=== PATIENT | male | born 1960 | race Caucasian/White ===

== ENCOUNTER 2021-02-27 19:54 | Emergency (ER) | payer BC, SELFPAY ==
[2021-02-27 20:01] VITALS: BP 175/105; PULSE 86; RESP 18; TEMP 38.8; O2SAT 100
[2021-02-27 20:40] VITALS: TEMP 36.9
--- NOTE | 2021-02-27 20:40 | ED.GENADULT ---
HPI - General Adult General Chief complaint: Unspecified Stated complaint: hit in head and throat with baseball Time Seen by Provider: 02/27/21 20:08 Limitations: language barrier History of Present Illness HPI narrative: 60 yo male presents to the ED by EMS for a head injury. 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 The first hit him in the face guard. the second struck the neck protector. He was okay initially, but later became weak and dizzy. It was very hot outside today, but he does not believe that was a factor. triage temperature was 38.8. Related Data Home Medications Medication Instructions Recorded Confirmed aspirin 325 mg PO DAILY 02/27/21 02/27/21 atorvastatin 20 mg PO DAILY 02/27/21 02/27/21 Allergies Allergy/AdvReac Type Severity Reaction Status Date / Time Penicillins Allergy Unknown Verified 02/27/21 20:05 Review of Systems Review of Systems: All systems reviewed & are unremarkable except as noted in HPI and below Constitutional: Constitutional: Reports headache(s) and Reports weakness Eyes: Eyes: Reports no additional eye complaints ENT: Reports dizziness Cardiovascular: Cardiovascular: Denies chest pain Respiratory: Respiratory: Denies dyspnea Gastrointestinal: Gastrointestinal: Reports nausea Genitourinary: Genitourinary: Reports no additional male genitourinary complaints Musculoskeletal: Musculoskeletal: Reports no additional musculoskeletal complaints Neurologic: Reports dizziness, Denies syncope and Denies seizure-like activity [facility] Social History Social History Gender identity (if verbalized by the patient): Male Exam Const: General: cooperative Orientation/consciousness: patient oriented x3 Other: diaphoresis HENMT: Head: normal to inspection Neck: Neck: normal visual inspection Resp: Effort & Inspection: normal respiratory effort Auscultation: clear to auscultation bilaterally, no rales, no rhonchi and no wheezes Cardio: Jugular venous distension: no JVD Rate: regular rate Rhythm: regular rhythm Heart sounds: no murmurs GI: Inspection: non-distended GI Palp: Yes Soft to palpation and No Tenderness to palpation present (GI) Skin: General skin exam: normal color Neuro: General: patient oriented x3, gait normal and moves all extremities Cranial nerves: Yes Equal, round and reactive pupils present and Yes Bilaterally intact EOM present Cognition (Neuro): normal cognition Speech: normal speech Extrem: General: no edema Psych: Appearance: well kempt Affect: normal affect Course Vital Signs Vital signs: Vital Signs Temperature 38.8 C H 02/27/21 20:01 Pulse Rate 86 02/27/21 20:01 Respiratory Rate 18 02/27/21 20:01 Blood Pressure 175/105 H 02/27/21 20:01 Pulse Oximetry 100 02/27/21 20:01 Temperature 36.9 C 02/27/21 20:40 Pulse Rate 72 02/27/21 21:58 Respiratory Rate 18 02/27/21 20:01 Blood Pressure 175/101 H 02/27/21 21:58 Pulse Oximetry 98 02/27/21 21:58 Medical Decision Making MDM Narrative Medical decision making narrative: Symptoms likely a combination of head injury and heat exhaustion. Feeling better after fluids. reluctant to have any further evaluation or treatment Differential Diagnosis Differential Diagnosis: concussion, SDH, SAH, Heat stroke, heat exhaustion Medical Records Medical records reviewed: Yes I reviewed the external patient's medical records. Vital Signs Vital Signs: Vital Signs Temperature 38.8 C H 02/27/21 20:01 Pulse Rate 86 02/27/21 20:01 Respiratory Rate 18 02/27/21 20:01 Blood Pressure 175/105 H 02/27/21 20:01 Pulse Oximetry 100 02/27/21 20:01 Temperature 36.9 C 02/27/21 20:40 Pulse Rate 72 02/27/21 21:58 Respiratory Rate 18 02/27/21 20:01 Blood Pressure 175/101 H 02/27/21 21:58 Pulse Oximetry 98 02/27/21 21:58 Discharge Plan Discharge Clinical Doris
[2021-02-27] MEDS: SODIUM CHLORIDE 0.9% IV 1,000 ML 999 ML IV CONT (21:48)
[2021-02-27] MEDS: MECLIZINE HCL 25 MG TABLET PO (21:48)
[2021-02-27 21:58] VITALS: BP 175/101; PULSE 72; O2SAT 98
== END 2021-02-27 22:15 | disposition home or self-care (01) ==
PROVIDERS: Emergency Provider Emergency Medicine; PCP Physician Assistant
DX: S06.0X0A Concussion without loss of consciousness, initial encounter (principal); T67.5XXA Heat exhaustion, unspecified, initial encounter; X30.XXXA Exposure to excessive natural heat, initial encounter; Y93.64 Activity, baseball; W21.03XA Struck by baseball, initial encounter
CPT/HCPCS: 99283; A9270; J7030